=== PATIENT | female | born 1990 | race Caucasian/White ===

== ENCOUNTER → 2018-10-04 15:18 | Outpatient (CLI) | payer OTHER ==
[2012-09-16 05:53] VITALS: BMI 27.5
[~2018-10-04 15:18] MED LIST: CELEXA; CELEXA10 MG PO; CLONAZEPAM2 MG/TAB PO; LITHIUM CARBON300 MG PO; RISPERDAL1 MG PO; SEROQUEL300 MG PO
== END | disposition home or self-care (01) ==
LOC: D.US 15:18
PROVIDERS: ATTEND Nurse Practitioner
DX: N92.5 Other specified irregular menstruation (principal)

== ENCOUNTER 2019-08-30 18:23 | Emergency (ER) | payer MEDICAID ==
[~2019-08-30] VITALS: Ht 167.6 cm; Wt 100.0 kg
[2019-08-30 18:33] VITALS: Ht 167.6 cm; Wt 100.0 kg
[2019-08-30] MEDS ORDERED: PRENAVITE1 TAB PO (18:35)
[2019-08-30] MEDS ORDERED: ACETAMINOPHEN325 MG PO (18:35)
[2019-08-30 19:04] LABS: BASOPHILS 0.1 % (0-2); EOSINOPHILS 0.7 % (0-7); HEMATOCRIT 36.8 % (36.0-48.0); HEMOGLOBIN 12.3 g/dL (12-16); IMMATURE GRANULOCYTES 0.7 % (0-5); LYMPHOCYTES 16.7 % (15-50); MCH 30.8 pg (26.0-34.0); MCHC 33.4 g/dL (31.0-37.0); MCV 92.2 fL (80.0-100.0); MONOCYTES 4.6 % (2-11); NEUTROPHILS 77.2 % (40-80); PLATELET COUNT 260 10x3/uL (130-400); RBC 3.99 10x6/uL (4.00-5.40); RDW 13.2 % (11.5-14.5); WBC 11.7 10x3/uL (4.8-10.8)
[2019-08-30 19:06] LABS: BILIRUBIN NEGATIVE (NEGATIVE); GLUCOSE NEGATIVE (NEGATIVE); KETONE NEGATIVE (NEGATIVE); NITRITE NEGATIVE (NEGATIVE); UROBILINOGEN NORMAL (NORMAL)
[2019-08-30 19:23] LABS: CALC OSMOLALITY 271 mosm/kg (275-300); CALCIUM 8.4 mg/dL (8.5-10.1); CARBON DIOXIDE 27.7 mmol/L (21.0-32.0); CHLORIDE - SERUM 102 mmol/L (98-107); CREATININE - SERUM 0.8 mg/dL (0.6-1.3); GLUCOSE 117 mg/dL (74-106); POTASSIUM - SERUM 3.4 mmol/L (3.5-5.1); SODIUM 136 mmol/L (136-145); UREA NITROGEN 9 mg/dL (7-18); eGFR NON AFRICAN AMERICAN > 90 mL/min (90-120)
[2019-08-30 19:53] LABS: ALBUMIN 3.1 g/dL (3.4-5.0); ALKALINE PHOSPHATASE 56 U/L (30-120); ALT (SGPT) 21 U/L (10-68); BILIRUBIN - TOTAL 0.22 mg/dL (0.2-1.3); HCG - QUANTITATIVE (MATERNAL) 23917 mIU/mL; PROTEIN - SERUM 6.5 g/dL (6.4-8.2)
[2019-08-30 19:57] LABS: HCG SERUM POSITIVE (NEGATIVE)
[2019-08-30] MEDS ORDERED: PHENERGAN25 M1 PO (21:07)
[2019-08-30 21:25] VITALS: BP 103/67
== END 2019-08-30 21:26 | disposition home or self-care (01) ==
LOC: D.ER 18:23
PROVIDERS: Emergency Medicine; Family Medicine
DX: O21.9 Vomiting of pregnancy, unspecified (principal); Z3A.17 17 weeks gestation of pregnancy; R51 Headache; R53.1 Weakness; E86.0 Dehydration

== ENCOUNTER 2019-11-17 22:03 | Outpatient (CLI) | payer MEDICAID ==
[2019-08-30 18:33] VITALS: BMI 35.6
[~2019-11-17 22:03] MED LIST changes: +ACETAMINOPHEN325 MG PO; +PHENERGAN25 M1 PO; +PRENAVITE1 TAB PO
[2019-11-17 22:25] LABS: BACTERIA MODERATE /hpf (NONE SEEN); BILIRUBIN NEGATIVE (NEGATIVE); EPITHELIAL CELLS OCC /hpf (0-5); KETONE NEGATIVE (NEGATIVE); NITRITE NEGATIVE (NEGATIVE); RED CELLS - URINE OCC /hpf (0-5); UROBILINOGEN NORMAL (NORMAL)
== END 2019-11-17 22:47 ==
LOC: D.LDO 22:03
PROVIDERS: ATTEND Obstetrics & Gynecology
DX: O21.0 Mild hyperemesis gravidarum (principal); Z3A.28 28 weeks gestation of pregnancy; R10.9 Unspecified abdominal pain

== ENCOUNTER 2019-12-19 13:11 | Outpatient (CLI) | payer MEDICAID ==
[2019-08-30 18:33] VITALS: BMI 35.6
== END 2019-12-19 14:15 | disposition home or self-care (01) ==
LOC: D.LDO 13:11
PROVIDERS: ATTEND Obstetrics & Gynecology
DX: O36.8190 Decreased fetal movements, unspecified trimester, not applicable or unspecified (principal)

== ENCOUNTER 2020-06-18 12:52 | Emergency (ER) | payer MEDICAID ==
[~2020-06-18] VITALS: Ht 167.6 cm; Wt 100.0 kg
[~2020-06-18 12:52] MED LIST changes: +ATIVAN1 MG PO; +HYDROCODON-ACE1 EA10 PO; +IBUPROFEN600 MG PO; +VALTREX500 MG PO
[2020-06-18 13:03] VITALS: BP 112/77; Ht 167.6 cm; Wt 100.0 kg
[2020-06-18 13:34] LABS: HCG URINE NEGATIVE (NEGATIVE)
[2020-06-18 14:12] LABS: BILIRUBIN NEGATIVE (NEGATIVE); KETONE NEGATIVE (NEGATIVE); NITRITE NEGATIVE (NEGATIVE); UROBILINOGEN NORMAL mg/dL (< 2)
[2020-06-18 14:13] LABS: BACTERIA FEW HPF (NONE SEEN); SQUAMOUS EPITHELIAL 0-5 HPF (0-4); WHITE CELLS - URINE RARE HPF (0-4)
[2020-06-18 15:02] LABS: BASOPHILS 0.1 % (0-2); EOSINOPHILS 1.9 % (0-7); HEMATOCRIT 38.9 % (36.0-48.0); HEMOGLOBIN 13.2 g/dL (12-16); IMMATURE GRANULOCYTES 0.1 % (0-5); LYMPHOCYTE ABS# 2.39 10x3/uL (1.18-3.74); MCH 29.2 pg (26.0-34.0); MCHC 33.9 g/dL (31.0-37.0); MCV 86.1 fL (80.0-100.0); MEAN PLATELET VOLUME 9.6 fL (7.4-10.4); MONOCYTES 5.3 % (2-11); NEUTROPHIL ABS# 3.93 10x3/uL (1.56-6.13); NEUTROPHILS 57.6 % (40-80); RBC 4.52 10x6/uL (4.00-5.40); RDW 13.2 % (11.5-14.5); WBC 6.8 10x3/uL (4.8-10.8)
[2020-06-18 15:04] LABS: PLATELET COUNT 271 10x3/uL (130-400)
[2020-06-18 15:05] LABS: CALC OSMOLALITY 277 mosm/kg (275-300); CALCIUM 8.6 mg/dL (8.5-10.1); CARBON DIOXIDE 28.9 mmol/L (21.0-32.0); CHLORIDE - SERUM 105 mmol/L (98-107); CREATININE - SERUM 0.8 mg/dL (0.6-1.3); GLUCOSE 118 mg/dL (74-106); SODIUM 138 mmol/L (136-145); UREA NITROGEN 14 mg/dL (7-18); eGFR NON AFRICAN AMERICAN > 90 mL/min (90-120)
[2020-06-18 15:22] LABS: ALKALINE PHOSPHATASE 111 U/L (30-120); ALT (SGPT) 28 U/L (10-68); AMYLASE - SERUM 25 U/L (25-115); BILIRUBIN - TOTAL 0.32 mg/dL (0.2-1.3); LIPASE 58 U/L (73-393); PROTEIN - SERUM 7.6 g/dL (6.4-8.2)
[2020-06-18 15:35] LABS: TROPONIN-I < 0.017 ng/mL (0.000-0.060)
[2020-06-18] MEDS ORDERED: VOLTAREN75 MG PO (16:45)
== END 2020-06-18 17:20 | disposition home or self-care (01) ==
LOC: D.ER 12:52
PROVIDERS: Family Medicine
DX: R10.2 Pelvic and perineal pain (principal); R10.32 Left lower quadrant pain